=== PATIENT | male | born 1985 | race Caucasian/White ===

== ENCOUNTER → 2017-08-30 | Outpatient (CLI) | payer BC ==
[2017-08-30 11:53] LABS: Anisocytosis Slight; Basophils % (A) 0 %; Eosinophils # (A) 0.3 k/uL (0-0.7); Eosinophils % (A) 2 %; HCT 39.8 % (39.0-53.0); HGB 11.6 gm/dL (13.0-17.5); Hypochromasia Marked; Lymphocytes # (A) 1.5 k/uL (1.0-4.8); Lymphocytes % (A) 14 %; MCH 21.7 pg (25.0-35.0); MCHC 29.1 g/dL (31.0-37.0); MCV 74.5 fL (80.0-100.0); Mean Platelet Volume 6.3; Microcytosis Slight; Monocytes # (A) 0.6 k/uL (0-1.0); Monocytes % (A) 5 %; Neutrophils # (A) 8.2 k/uL (1.3-7.7); Neutrophils % (A) 77 %; Platelet Count 789 k/uL (150-450); RBC 5.33 m/uL (4.30-5.90); RDW 16.3 % (11.5-15.5); WBC 10.7 k/uL (3.8-10.6)
[2017-08-30 13:23] LABS: Partial Thromboplastin Time 21.9 sec (22.0-30.0)
== END | disposition home or self-care (01) ==
LOC: LABPAT 11:16
PROVIDERS: ATTEND Otolaryngology
DX: Z01.812 Encounter for preprocedural laboratory examination (principal); J35.01 Chronic tonsillitis
CPT/HCPCS: 36415; 85025; 85027; 85610; 85730

== ENCOUNTER 2017-09-07 09:29 | Day surgery (SDC) | payer BC ==
[2017-09-05 16:05] VITALS: BMI 33.2
--- NOTE | 2017-09-07 04:14 | HP ---
HISTORY AND PHYSICAL CHIEF COMPLAINT: Recurrent tonsillitis. HISTORY OF PRESENT ILLNESS: This patient is a 32-year-old male who was recently seen in my office with the complaint of having recurrent episodes of chronic tonsillitis which the patient states have been quite painful. He has been on numerous oral antibiotics with no improvement. At the time that he was seen in my office, clinical examination of the oropharynx revealed 3+ cryptic tonsils filled with white cheesy debris. It was recommended that the patient undergo a tonsillectomy under general anesthesia. PAST MEDICAL HISTORY: Past medical history reveals that the patient has no known allergies to medications. His only current medication is Concerta. Previous surgeries include oral surgery. REVIEW OF SYSTEMS: The review of systems is essentially unremarkable. PHYSICAL EXAMINATION: The patient is a pleasant 32-year-old male who is alert and cooperative. HEENT EXAMINATION: Patient is normocephalic. Tympanic membranes are normal. Middle ear spaces are free of any fluid or infection. Pupils are equal, round, and reactive to light and accommodation. Extraocular movements are within normal limits. Intranasal examination reveals severe septal deviation with compensatory hypertrophy of the inferior turbinates and a moderate amount of mucus on the mucous membranes and draining down the posterior pharynx. Examination of the oropharynx reveals 3+ tonsillar hypertrophy with very prominent tonsillar crypts filled with white cheesy debris. Palpation of the neck, cranial nerves 2 through 12 and the remainder of the head and neck exam is unremarkable. CHEST/CARDIOVASCULAR: Lung bravo are clear to percussion and auscultation. The patient is in regular sinus rhythm. S1, S2 are present without any murmurs, S3s or S4s. Peripheral pulses are bilaterally symmetrical and within normal limits. ABDOMEN: There is no evidence the masses, megaly or tenderness. The abdomen is soft. Skin is unremarkable. Musculoskeletal and neurological are within an within normal limits. RECTAL EXAMINATION: The rectal exam is deferred at this time because the patient has this done on a regular basis at his family physician's office. The remainder of physical exam is essentially unremarkable. IMPRESSION: Chronic tonsillitis. PLAN: The patient is scheduled to undergo a tonsillectomy under general anesthesia in the a.m. ATTENTION RNS IN THE PRE-SURGICAL AREA: The only medications that I have ordered for this patient to receive in the pre-surgical area are Ofirmev IV and also 2 million units of aqueous penicillin G IV, both to be given once an intravenous line has been established. If the pharmacy department sends any other pre-surgical prophylactic antibiotics to the pre-surgical area for this patient, they should be returned to the pharmacy department and make sure that the patient's account is credited appropriately. I have discussed the risks, benefits and alternative therapies for the above-mentioned procedure and for both sedation/analgesia as well as necessary blood product administration, if indicated, as they pertain to this patient. The patient has indicated his or her understanding and acceptance of the risks and procedures discussed. MMODL / IJN: [id number] /
[~2017-09-07 09:29] MED LIST: DEXAMETHASONE SOD PHOSPHATE 10 MG/ML 1 ML VIAL IV ONE; HYDROmorphone 0.5 MG/0.5 ML SYRINGE IVP PRN; LACTATED RINGERS 1,000 ML IV SCH; MORPHINE SULFATE 4 MG/ML SYRINGE IV PRN; NALOXONE 0.4 MG/ML 1 ML VIAL IV PRN; ONDANSETRON 4 MG/2 ML VIAL IVP ONE; Pre Op ABX Message 1 EACH MISC MISCELLANE ONE
[2017-09-07] MEDS ORDERED: SCOPOLAMINE 1.5MG/72HR PATCH TRANSDERM ONE (10:12)
[2017-09-07] MEDS ORDERED: ACETAMINOPHEN IV (For NPO) 1,000 MG in EMPTY BAG 1 BAG IVPB ONE (11:00)
[2017-09-07] MEDS ORDERED: PENICILLIN G POTASSIUM 2,000,000 UNIT in DEXTROSE 5% IN WATER 100 ML IVPB ONE ×2 (11:00)
[2017-09-07] MEDS ORDERED: SUCCINYLCHOLINE CHLORIDE 100 MG/5 ML SYR IV ONE (12:02)
[2017-09-07] MEDS ORDERED: PROPOFOL 10 MG/ML 20 ML VIAL IV ONE (12:02)
[2017-09-07] MEDS ORDERED: fentaNYL (PF) 50 MCG/ML 2 ML AMP ONE (12:02)
[2017-09-07] MEDS ORDERED: DEXAMETHASONE SOD PHOS (MDV) 100 MG/10 ML VIAL ONE (12:02)
[2017-09-07] MEDS ORDERED: MIDAZOLAM 2 MG/2 ML VIAL ONE (12:02)
[2017-09-07] MEDS ORDERED: LIDOCAINE 1% INJ 10MG/ML (20 ML MDV) ONE (12:02)
[2017-09-07] MEDS ORDERED: HYDROmorphone (PF) 1 MG/ML ONE (12:02)
[2017-09-07] MEDS ORDERED: BUPIVACAINE (PF) 0.5% 30 ML VIAL MISCELLANE ONE ×2 (12:26)
[2017-09-07] MEDS ORDERED: LACTATED RINGERS 1,000 ML IV SCH (12:30)
[2017-09-07] MEDS ORDERED: HYDROmorphone PCA 5 MG/25 ML SYRINGE IV PRN (12:30)
[2017-09-07] MEDS ORDERED: ONDANSETRON 4 MG/2 ML VIAL IVP PRN (12:30)
[2017-09-07 13:28] VITALS: TEMP 98.8
[2017-09-07] MEDS ORDERED: HYDROmorphone 2 MG/ML 1 ML SYRINGE IVP ONE (13:37)
[2017-09-07 14:45] VITALS: RESP 18
[2017-09-07 15:42] VITALS: BP 123/66; PULSE 74
--- NOTE | 2017-09-10 22:31 | OP ---
OPERATIVE REPORT DATE OF SURGERY: 09/07/2017 PREOPERATIVE DIAGNOSIS: Chronic tonsillitis. POSTOPERATIVE DIAGNOSIS: Chronic tonsillitis. ANESTHESIA: General. OPERATIVE PROCEDURE: Tonsillectomy. OPERATING SURGEON: Dr. Phillips. COMPLICATIONS: None. ESTIMATED BLOOD LOSS: Less than 50 mL. OPERATIVE PROCEDURE: The patient was placed on the Operating Table in the supine position, after uneventful induction and endotracheal intubation, satisfactory general anesthesia was obtained. Next, the #3 Mayelin-Gonsalo mouth gag was introduced into the oropharynx, expanded and suspended from a Gleason Stand. Following this, both peritonsillar areas were injected with the tonsillar forceps and pulled medially. The sickle knife was used to make an incision 4 mm lateral to the anterior pillar, beginning at the superior pole and working down to the inferior pole with a similar incision being carried out parallel to the posterior pillar. The angle scissors and the serrated Blade dissector were used to dissect the tonsil away from the tonsillar fossa. The tonsil itself was excised en toto using the tonsillar snare. Hemostasis was obtained using suction cautery. A sponge was placed in the empty tonsillar fossa. Attention was then directed to the left tonsil where the same procedure was carried out, with the left tonsil being grasped with the tonsillar forceps and pulled medially. The sickle knife was used to make an incision 4 mm lateral to the anterior pillar beginning at the superior pole and working down to the inferior pole with a similar incision being carried out parallel to the posterior pillar. Once again, the angle scissors and the serrated Blade dissector were used to dissect the tonsil away from the tonsillar fossa and the tonsil itself was excised en toto using the tonsillar snare. Hemostasis was obtained using suction cautery. A sponge was placed in the empty tonsillar fossa. The mouth gag was relaxed for a period of approximately seven minutes and upon re-expanding and removing all sponges, no evidence of any active bleeding was noted. At this point, the procedure was terminated. There were no intraoperative complications. The patient tolerated the procedure well and was returned to the Recovery Room in satisfactory condition. MMODL / IJN: [id number] /
== END 2017-09-07 15:50 | disposition home or self-care (01) ==
LOC: OR 09:29
PROVIDERS: ATTEND Otolaryngology
DX: J35.01 Chronic tonsillitis (principal); K21.9 Gastro-esophageal reflux disease without esophagitis; F90.9 Attention-deficit hyperactivity disorder, unspecified type; Z79.899 Other long term (current) drug therapy
CPT/HCPCS: 88304; 42826; J2250; J1170 ×3; J1100 ×2; J2405; J2001; J3010; J0131; J0330; J2704; J2540

== ENCOUNTER 2017-09-08 08:45 | Observation (INO) | payer BC ==
[2017-09-08 09:29] LABS: Anisocytosis Slight; Basophils % (A) 0 %; Eosinophils # (A) 0.1 k/uL (0-0.7); Eosinophils % (A) 1 %; HCT 36.2 % (39.0-53.0); HGB 10.9 gm/dL (13.0-17.5); Hypochromasia Marked; INR 1.1 (<1.2); Lymphocytes # (A) 1.8 k/uL (1.0-4.8); Lymphocytes % (A) 14 %; MCH 22.3 pg (25.0-35.0); MCV 74.3 fL (80.0-100.0); Mean Platelet Volume 6.4; Microcytosis Moderate; Monocytes # (A) 0.7 k/uL (0-1.0); Monocytes % (A) 6 %; Neutrophils # (A) 10.5 k/uL (1.3-7.7); Neutrophils % (A) 80 %; Platelet Count 731 k/uL (150-450); RBC 4.87 m/uL (4.30-5.90); RDW 16.5 % (11.5-15.5); WBC 13.2 k/uL (3.8-10.6)
[2017-09-08 09:32] LABS: Anion Gap 14 mmol/L; Blood Urea Nitrogen 19 mg/dL (9-20); Calcium 9.9 mg/dL (8.4-10.2); Carbon Dioxide 26 mmol/L (22-30); Chloride 99 mmol/L (98-107); Glucose 162 mg/dL (74-99); Potassium 5.2 mmol/L (3.5-5.1); Sodium 139 mmol/L (137-145)
[2017-09-08 09:46] LABS: Partial Thromboplastin Time 20.4 sec (22.0-30.0)
[2017-09-08] MEDS ORDERED: ONDANSETRON 4 MG/2 ML VIAL IVP STA (10:09)
[2017-09-08] MEDS ORDERED: MORPHINE SULFATE 5 MG/ML SYRINGE IVP STA (10:09)
--- NOTE | 2017-09-08 10:09 | ED ---
ENT HPI - General Chief complaint: ENT Stated complaint: bleeding from tonsil Sx Time Seen by Provider: 09/08/17 08:56 Source: patient, RN notes reviewed Mode of arrival: ambulatory Limitations: no limitations - History of Present Illness Initial comments: This is a 32-year-old male presents emergency Department chief complaint of postop, cage. Patient states he had tonsillectomy yesterday states that approximate one-hour prior arrival he started bleeding profusely. Patient states that is filled up several cups of blood. Patient states that he was drinking a protein smoothie this morning when it started. He did admit that when he got home from his surgery yesterday that he fell and hit his head. Patient did not lose consciousness he denies headache or dizziness. - Related Data Home Medications Medication Instructions Recorded Confirmed Methylphenidate HCl [Concerta] 36 mg PO DAILY 02/21/14 09/05/17 Mitchell Tracy 1 tab PO DAILY 09/05/17 Magnesium 200 mg PO DAILY 09/05/17 09/05/17 [place]-3 Fatty Acids/Fish Oil [Fish 1,000 mg PO DAILY 09/05/17 09/05/17 Oil 1,000 mg Softgel] Previous Rx's Medication Instructions Recorded Cephalexin [Keflex] 500 mg PO Q12HR #20 cap NS 09/07/17 HYDROcodone/APAP 7.5-325MG [[place] 1 tab PO Q4H PRN #25 tab NS 09/07/17 7.5-325] Allergies Allergy/AdvReac Type Severity Reaction Status Date / Time No Known Allergies Allergy Verified 09/08/17 08:54 Review of Systems ROS Statement: Those systems with pertinent positive or pertinent negative responses have been documented in the HPI. ROS Other: All systems not noted in ROS Statement are negative. Past Medical History Past Medical History: GERD/Reflux History of Any Multi-Drug Resistant Organisms: None Reported Past Surgical History: Orthopedic Surgery Additional Past Surgical History / Comment(s): hand, elbow, acl reconstruction knee, eye surg. Past Anesthesia/Blood Transfusion Reactions: No Reported Reaction Past Psychological History: No Psychological Hx Reported Smoking Status: Never smoker Past Alcohol Use History: Occasional Past Drug Use History: None Reported - Past Family History Mother Family Medical History: No Reported History General Exam Limitations: no limitations General appearance: alert, in no apparent distress Head exam: Present: atraumatic, normocephalic. Absent: normal inspection ( There is multiple superficial lacerations over the forehead ) Eye exam: Present: normal appearance, PERRL, EOMI. Absent: scleral icterus, conjunctival injection, periorbital swelling ENT exam: Present: mucous membranes moist, TM's normal bilaterally, normal external ear exam. Absent: normal exam, normal oropharynx (There is blood covering both tonsils and oral region difficult to identify active bleeding site. Patient is spitting up blood continuously in the room) Neck exam: Present: normal inspection, full ROM. Absent: tenderness, meningismus, lymphadenopathy Respiratory exam: Present: normal lung sounds bilaterally. Absent: respiratory distress, wheezes, rales, rhonchi, stridor Cardiovascular Exam: Present: regular rate, normal rhythm, normal heart sounds. Absent: systolic murmur, diastolic murmur, rubs, gallop, clicks Neurological exam: Present: alert, oriented X3, CN II-XII intact, reflexes normal. Absent: motor sensory deficit Skin exam: Present: warm, dry, intact, normal color. Absent: rash Course Vital Signs 09/08/17 09/08/17 08:53 09:10 Temperature 99.0 F Pulse Rate 118 H 69 Respiratory 20 16 Rate Blood Pressure 140/75 121/53 O2 Sat by Pulse 98 93 L Oximetry Medical Decision Making - Medical Decision Making 32-year-old male presented for tonsillectomy bleeding status post surgery. Dr. Jane did come and evaluate the patient will be taking the patient to the OR. - Lab Data Result diagrams: 09/08/17 09:07 09/08/17 09:07 Lab Results 09/08/17 09/08/17 09/08/17 Range/Units 09:07 09:07 09:07 WBC 13.2 H (3.8-10.6) k/uL RBC 4.87 (4.30-5.90) m/uL Hgb 10.9 L (13.0-17.5) gm/dL Hct 36.2 L (39.0-53.0) % MCV 74.3 L (80.0-100.0) fL MCH 22.3 L (25.0-35.0) pg MCHC 30.0 L (31.0-37.0) g/dL RDW 16.5 H (11.5-15.5) % Plt Count 731 H (150-450) k/uL Neutrophils % 80 % Lymphocytes % 14 % Monocytes % 6 % Eosinophils % 1 % Basophils % 0 % Neutrophils # 10.5 H (1.3-7.7) k/uL Lymphocytes # 1.8 (1.0-4.8) k/uL Monocytes # 0.7 (0-1.0) k/uL Eosinophils # 0.1 (0-0.7) k/uL Basophils # 0.0 (0-0.2) k/uL Hypochromasia Marked Anisocytosis Slight Microcytosis Moderate PT (9.0-12.0) sec INR (<1.2) APTT (22.0-30.0) sec Sodium 139 (137-145) mmol/L Potassium 5.2 H (3.5-5.1) mmol/L Chloride 99 (98-107) mmol/L Carbon Dioxide 26 (22-30) mmol/L Anion Gap 14 mmol/L BUN 19 (9-20) mg/dL Creatinine 1.11 (0.66-1.25) mg/dL Est GFR (MDRD) Af Amer >60 (>60 ml/min/1.73 sqM) Est GFR (MDRD) Non-Af >60 (>60 ml/min/1.73 sqM) Glucose 162 H (74-99) mg/dL Calcium 9.9 (8.4-10.2) mg/dL Blood Type O Positive Blood Type Recheck No Antibody Screen NEGATIVE Spec Expiration Date 09/11/2017 - 230609/08/17 Range/Units 09:07 WBC (3.8-10.6) k/uL RBC (4.30-5.90) m/uL Hgb (13.0-17.5) gm/dL Hct (39.0-53.0) % MCV (80.0-100.0) fL MCH (25.0-35.0) pg MCHC (31.0-37.0) g/dL RDW (11.5-15.5) % Plt Count (150-450) k/uL Neutrophils % % Lymphocytes % % Monocytes % % Eosinophils % % Basophils % % Neutrophils # (1.3-7.7) k/uL Lymphocytes # (1.0-4.8) k/uL Monocytes # (0-1.0) k/uL Eosinophils # (0-0.7) k/uL Basophils # (0-0.2) k/uL Hypochromasia Anisocytosis Microcytosis PT 11.0 (9.0-12.0) sec INR 1.1 (<1.2) APTT 20.4 L (22.0-30.0) sec Sodium (137-145) mmol/L Potassium (3.5-5.1) mmol/L Chloride (98-107) mmol/L Carbon Dioxide (22-30) mmol/L Anion Gap mmol/L BUN (9-20) mg/dL Creatinine (0.66-1.25) mg/dL Est GFR (MDRD) Af Amer (>60 ml/min/1.73 sqM) Est GFR (MDRD) Non-Af (>60 ml/min/1.73 sqM) Glucose (74-99) mg/dL Calcium (8.4-10.2) mg/dL Blood Type Blood Type Recheck Antibody Screen Spec Expiration Date Disposition Clinical Impression: Status post tonsillectomy, Haemorrhage, tonsil, postoperative Disposition: ADMITTED IP TO THIS HOSP Condition: Fair Referrals: Britney Mares DO [Primary Care Provider] - 1-2 days
[2017-09-08] MEDS ORDERED: OXYMETAZOLINE 0.05% NASL SPRAY 1 SPRAY BOTTLE NASAL STA (10:12)
[2017-09-08] MEDS ORDERED: BENZOCAINE SPRAY 1 CAN MUCOUS MEM STA (10:14)
[2017-09-08] MEDS ORDERED: METOCLOPRAMIDE 5 MG/ML 2 ML VIAL IVP STA (10:28)
[2017-09-08] MEDS ORDERED: IV FLUID CONTINUATION 1,000 ML IV ONE (10:55)
[2017-09-08] MEDS ORDERED: BUPIVACAINE (PF) 0.25% 30 ML VIAL SQ ONE ×2 (11:07→11:30)
[2017-09-08] MEDS ORDERED: LIDOCAINE 1%/EPI 1:200,000 MPF 10 ML VIAL SQ ONE ×2 (11:07→11:30)
[2017-09-08] MEDS ORDERED: MIDAZOLAM 2 MG/2 ML VIAL ONE (11:13)
[2017-09-08] MEDS ORDERED: FAMOTIDINE 20 MG/2 ML VIAL ONE (11:13)
[2017-09-08] MEDS ORDERED: LIDOCAINE 1% INJ 10MG/ML (20 ML MDV) ONE (11:13)
[2017-09-08] MEDS ORDERED: PROPOFOL 10 MG/ML 20 ML VIAL IV ONE (11:13)
[2017-09-08] MEDS ORDERED: SUCCINYLCHOLINE CHLORIDE 100 MG/5 ML SYR IV ONE (11:13)
[2017-09-08] MEDS ORDERED: fentaNYL (PF) 50 MCG/ML 2 ML AMP ONE (11:13)
[2017-09-08] MEDS ORDERED: ONDANSETRON 4 MG/2 ML VIAL ONE (11:13)
[2017-09-08] MEDS ORDERED: DEXAMETHASONE SOD PHOS (MDV) 100 MG/10 ML VIAL ONE (11:13)
[2017-09-08] MEDS ORDERED: DEXTROSE 5%-LACTATED RINGERS 1,000 ML IV SCH (12:15)
[2017-09-08] MEDS: HYDROmorphone 1 MG/ML 1 ML SYRINGE IVP ONE ×4 (12:30→12:50)
[2017-09-08] MEDS ORDERED: LACTATED RINGERS 1,000 ML IV ONE (13:05)
[2017-09-08 13:53] LABS: Anisocytosis Slight; HCT 29.6 % (39.0-53.0); Hypochromasia Marked; MCH 22.2 pg (25.0-35.0); MCHC 30.2 g/dL (31.0-37.0); MCV 73.6 fL (80.0-100.0); Mean Platelet Volume 7.5; Microcytosis Moderate; Platelet Count 561 k/uL (150-450); RBC 4.02 m/uL (4.30-5.90); RDW 17.7 % (11.5-15.5); WBC 23.7 k/uL (3.8-10.6)
[2017-09-08 13:59] LABS: HGB 8.9 gm/dL (13.0-17.5)
--- NOTE | 2017-09-08 14:07 | HP ---
HISTORY AND PHYSICAL CHIEF COMPLAINT: Postop tonsil bleed. HISTORY OF PRESENT ILLNESS: Tung Vicente is a 32-year-old white male who underwent a tonsillectomy by Dr. Giuseppe Phillips yesterday here at [facility]. The patient had surgery on Sunday, i.e., yesterday, went home and stayed by himself and called his mother where he had an acute bleed early this morning around 6 o'clock he had intermittent bleeding, by 9 o'clock he came to the emergency room with profuse bleeding. The patient denies eating any crunchy foods. Denies any heavy lifting or bending or any other activity that might have exacerbated this problem. He presented with profuse bleeding and comes with a large Phillips's cup full of blood. PAST MEDICAL HISTORY: Positive for ADD. SURGICAL HISTORY: Oral surgery and yesterday's tonsillectomy by Dr. Phillips. No other surgery history is noted. ALLERGIES: Negative. REVIEW OF SYSTEMS: CONSTITUTIONAL: Patient is fatigued and anxious. PULMONARY: Denies shortness of breath. GI: Denies any abdominal pain. MUSCULOSKELETAL: Patient works out and takes testosterone. ALLERGIES: Negative. NEUROLOGIC: Negative. PHYSICAL EXAMINATION: Vital signs are stable. Patient is afebrile. 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 Well nourished, well developed. No gross abnormalities. HEAD: Normocephalic. The face is symmetric. There is no abnormal movements. There are some abrasions to the forehead where he had a fall with some bandages covering the forehead. EARS: Postoperative tonsil hemorrhage, right side. PLAN OF TREATMENT: I am holding pressure with tonsil sponge and I have decided to take this patient to the operating room for better control of this patient's bleeding. All risks, benefits, alternative therapies, and complications were discussed with the patient. The patient agreed to this procedure and anesthesia has been notified. MMODL / IJN: [id number] /
[2017-09-08 14:26] VITALS: BMI 34.0
--- NOTE | 2017-09-08 14:37 | OP ---
OPERATIVE REPORT OPERATIVE NOTE DATE OF SERVICE: 09/08/2017. TYPE OF CASE: Urgent. SURGEON: Mckinley Pearson D.O. PREOPERATIVE DIAGNOSIS: Acute right-sided tonsillectomy hemorrhage. POSTOPERATIVE DIAGNOSIS: Acute right-sided tonsillectomy hemorrhage. OPERATIVE PROCEDURE: Surgical control of a right-sided postoperative tonsillectomy hemorrhage. OPERATIVE BLOOD LOSS: 10 mL. COMPLICATIONS: None. OPERATIVE INDICATIONS: This patient had profuse bleeding from the mouth and throat after tonsillectomy this morning. His surgery was done on Sunday and bleeding was noted this morning. We were unable to control the bleeding in the emergency room and we felt the patient needed to come to the operating room for control of postop tonsil hemorrhage. All risks, benefits, alternative therapies, and complications were discussed. Consent was obtained. All questions were answered. This patient had a tonsillectomy done by Dr. Giuseppe Phillips yesterday. OPERATIVE PROCEDURE: This patient was taken to the operating room, placed in the supine position. A general inhalation anesthetic was administered to the patient by mask and subsequently intubated with a cuffed endotracheal tube by the Department of Anesthesia with the functioning IV line in place. The patient was monitored throughout the entire case by the Department of Anesthesia. The patient had profuse bleeding noted on the right side. There was some bleeding noted on the left. With the use of Coblation cauterization and suture ties, the bleeding was controlled. FloSeal was placed into the tonsillar fossas for control of the patient's bleeding. Excellent control was obtained. The area was abraded with a tonsil sponge. We were unable to get the bleeding to start once again. The patient tolerated this well. We did suction a large amount of blood from the stomach and the patient tolerated this procedure well. Follow up will be with Dr. Phillips. The patient will be getting a hemoglobin. I anticipate he has some blood loss anemia. Hopefully he is above her hemoglobin of 7. If not we did talk to him previously and his mother about possible transfusion. We are awaiting the results of his H and H. DELGADO / JATIN: [id number] /
[2017-09-08] MEDS: oxyCODONE-APAP 5-325MG 1 EACH TAB PO PRN ×3 (15:43→23:26)
[2017-09-08] MEDS ORDERED: TEMAZEPAM 30 MG CAP PO PRN (17:04)
[2017-09-08] MEDS: DEXAMETHASONE SOD PHOSPHATE 4 MG/ML 1 ML VIAL IV SCH ×2 (17:42→23:26)
[2017-09-08] MEDS: ACETAMINOPHEN IV (For NPO) 1,000 MG in EMPTY BAG 1 BAG IVPB SCH ×2 (17:43→23:26)
[2017-09-08] MEDS ORDERED: methylPREDNISolone SOD SUCCI 125 MG/2 ML VIAL IV SCH (18:00)
[2017-09-09] MEDS: LACTATED RINGERS 1,000 ML IV SCH ×2 (01:15→08:32)
[2017-09-09] MEDS: oxyCODONE-APAP 5-325MG 1 EACH TAB PO PRN ×3 (05:22→13:55)
[2017-09-09] MEDS: DEXAMETHASONE SOD PHOSPHATE 4 MG/ML 1 ML VIAL IV SCH ×2 (05:24→11:22)
[2017-09-09] MEDS: ACETAMINOPHEN IV (For NPO) 1,000 MG in EMPTY BAG 1 BAG IVPB SCH ×2 (05:24→11:22)
[2017-09-09 07:00] VITALS: BP 133/81; PULSE 95; RESP 14; TEMP 98.5
[2017-09-09] MEDS ORDERED: METHYLPHENIDATE HCL 10 MG TAB PO SCH (13:00)
[2017-09-09 13:06] LABS: Anisocytosis Slight; Basophils % (A) 0 %; Eosinophils # (A) 0.1 k/uL (0-0.7); Eosinophils % (A) 1 %; HCT 31.6 % (39.0-53.0); Hypochromasia Marked; Lymphocytes # (A) 1.3 k/uL (1.0-4.8); Lymphocytes % (A) 9 %; MCH 21.6 pg (25.0-35.0); MCHC 28.4 g/dL (31.0-37.0); Mean Platelet Volume 6.2; Microcytosis Slight; Monocytes # (A) 0.5 k/uL (0-1.0); Monocytes % (A) 3 %; Neutrophils # (A) 12.1 k/uL (1.3-7.7); Neutrophils % (A) 86 %; Platelet Count 614 k/uL (150-450); RBC 4.16 m/uL (4.30-5.90); RDW 16.7 % (11.5-15.5); WBC 14.1 k/uL (3.8-10.6)
[2017-09-09 13:34] LABS: Anion Gap 12 mmol/L; Blood Urea Nitrogen 21 mg/dL (9-20); Calcium 10.1 mg/dL (8.4-10.2); Carbon Dioxide 29 mmol/L (22-30); Chloride 94 mmol/L (98-107); Glucose 191 mg/dL (74-99); Potassium 5.2 mmol/L (3.5-5.1); Sodium 135 mmol/L (137-145)
[2017-09-09] MEDS ORDERED: DEXAMETHASONE SOD PHOSPHATE 10 MG/ML 1 ML VIAL IV SCH (18:00)
--- NOTE | 2017-09-10 23:30 | DS ---
DISCHARGE SUMMARY DATE OF ADMISSION: 09/08/2017. DATE OF DISCHARGE: 09/09/2017. REASON FOR ADMISSION: Postoperative right-sided tonsillectomy bleeding 24 hours after surgery. OPERATIVE PROCEDURE: Control of right-sided post tonsillectomy bleeding by Dr. Mckinley Pearson. HISTORY OF PRESENT ILLNESS: This patient is a 32-year-old male who underwent an uneventful tonsillectomy on 09/07/2017. His estimated blood loss at that time was less than 50 mL. The patient was discharged that same day from the [facility] area with proper instructions and home going medications including antibiotics and pain medications, which included Pike 7.5/3.25 mg. He was given very detailed written postoperative instructions describing what to expect after surgery as well as the do's and don'tsduring his recovery. The patient apparently did well that evening after surgery, however, on the morning after his surgery, he developed some bleeding, which despite gargling with ice water, it became progressively worse and the patient presented to [facility] Emergency Room. He was evaluated by the emergency room physician and subsequently Dr. Mckinley Pearson who was called to see the patient. Dr. Pearson determined that the patient needed to be returned to surgery and in fact returned him to surgery to control a right sided post tonsillectomy bleed. The patient was subsequently admitted to the hospital. Dr. Pearson informed me of the patient's admission while I was visiting a hospital because I was unaware that he had been admitted. I subsequently saw the patient and had him transferred to my service and also advised the nursing staff to call Dr. Pearson and advised him that I had taken over care of the patient. At the time that I saw the patient, he was not having acute bleeding. There were some conflicting stories with regards to the patient's mental status. The nursing staff informed me that they had been told that the patient had attempted to commit suicide by striking himself in the forehead with a board with nails in it. In addition to this, he apparently had taken all of the Pike 7.5/3.5 tablets (30 tablets) all at once. However, reviewing the emergency room note, there was no mention of the suicide attempt and the patient was apparently quite lucid and able to recount history of his bleeding to the ER physician which is something which I would not expect if the patient had swallowed 30 Percocet tablets at 1 time. In addition to this , the wound on his forehead was consistent with the patient's story of having accidentally fallen at home and did not appear to be consistent with having been struck in the head with either wooden board or a wooden board with nails present in it. That is to say, I did not note any deep lacerations but simply several scrapes to the skin of the forehead. I confronted the patient with regards to how he got the wound and also I advised him of the nature of the information that had been circulated to me with regard to him attempting to commit suicide. The patient vehemently denied trying to commit suicide and stated that he simply fell at home and that the only deviance from the prescription directions with respect to the Pike 7.5, 3.25 was that he took 1 pill and when he did not receive any relief, he took a 2nd pill 3 hours later. The patient recounts that he did this twice and then he became somewhat nauseated and did not take any more pills. At this time, he is resting comfortably. He was admitted and placed on the appropriate intravenous medication as well as given pain medication and supplemental O2 with humidification. PAST MEDICAL HISTORY: Is well documented in the patient's recent history and physical dated 2017 and will not be repeated here. HOSPITAL COURSE: Once I had the patient transferred to my service, I requested nurse placed him on Ofirmev 1000 mg IV q.6, place him on a full liquid diet, and only allow him to have the Percocet tablets (which had been ordered by Dr. Mckinley Pearson), if absolutely necessary, and also advised him to strictly monitor this so that he does not receive this medication any sooner than the prescribed intervals. In addition, I increased his intravenous fluids to 125 mL/hour. I advised the patient that barring any complications that he would be discharged the following day, I also canceled a psychiatric consult and also a medical consult which had been placed for this patient because I felt after speaking with the patient and reviewing his lab work that they were not necessary. HOSPITAL COURSE: The patient's hospital course was uneventful. DISCHARGE STATUS: Patient is discharged at this time in satisfactory condition and is in no abnormal distress or abnormal pain. That is to say he is experiencing the usual amount of pain with respect to recent tonsillectomy patient. He states that he does not need any more of the narcotic pain medication because he has most of the pain medication left that was originally prescribed. I again emphasized to him the importance of only taking the pain tablets every 4 hours and not every 3 hours. Also emphasized to the patient that he should read the 1 page discharge instruction sheets, which I personally dictated and covers all of the information he needs with regard to diet, things to expect , and also things that he should not do such as exercise and also the diet is listed on the sheet. I Also advised him again that if any further bleeding starts again, he should gargle with ice water and spit after 5 minutes and if it does not stop, he should return to the emergency room. However, I also mentioned that he should not suck on popsicles, ice chips or ice use because this will cause him the swallow blood and will eventually make him throw up. The patient acknowledged that he understood the instructions. He stated that he had and a copy of the instructions at home. In addition, to the copy that he has at home I have made sure that the nurse printed out a 2nd copy of my personal instructions that I had dictated for this patient and gave them to the patient. DISCHARGE STATUS: He is discharged in satisfactory condition on the following medications and instructions: He is to resume the following post tonsillectomy instructions with 1 exception. I am going to place the patient on Motrin 800 mg p.o. t.i.d. p.r.n. for pain. I advised he may use his medications slowly or a be used to supplement his Pike 7.5/3.25 tablets should they wear off in 3 hours. I emphasized the importance that he can only take 3 of these Motrin 800 mg tablets per day at the most. In addition , we are going to place him on a Decadron Dosepak with appropriate instructions to be started on 09/10/2017. I personally phoned both of these prescriptions to [facility] on [address] in [place]. All of the patient's questions were answered and he stated that he understood all of the instructions. He has an appointment to be seen in my office on 09/13/2017 for his 1st postop followup visit. His has my office phone and has been advised to call if any problems or questions should arise. MMJEFFL / IJN: [id number] / MADELYN
== END 2017-09-09 14:55 | disposition home or self-care (01) ==
LOC: EC 08:45 → 3SUR 10:38
PROVIDERS: ADMIT Otolaryngology; ATTEND Otolaryngology
DX: J95.830 Postprocedural hemorrhage of a respiratory system organ or structure following a respiratory system procedure (principal); K21.9 Gastro-esophageal reflux disease without esophagitis; F90.9 Attention-deficit hyperactivity disorder, unspecified type; W19.XXXA Unspecified fall, initial encounter; Y92.009 Unspecified place in unspecified non-institutional (private) residence as the place of occurrence of the external cause; Y83.6 Removal of other organ (partial) (total) as the cause of abnormal reaction of the patient, or of later complication, without mention of misadventure at the time of the procedure; Z79.899 Other long term (current) drug therapy
CPT/HCPCS: 42962; 99285; 36415; 86900; 86901; 80048 ×2; 85025 ×2; 85027; 85610; 85730; 86850; G0378 ×2; C1762; J2250; J1100 ×3; J2405; J2001; J3010; J1170; J0131 ×2; J0330; J2704

== ENCOUNTER 2017-12-10 10:21 | Day surgery (SDC) | payer BC, OTHER ==
[2017-12-10 10:35] VITALS: RESP 16; TEMP 98.7
[2017-12-10] MEDS ORDERED: MIDAZOLAM 2 MG/2 ML VIAL IV PRN (10:44)
[2017-12-10] MEDS ORDERED: LIDOCAINE 1% 20 ML VIAL (10MG/ML) FOR IV START INTRADERMA PRN (10:44)
[2017-12-10] MEDS ORDERED: LACTATED RINGERS 1,000 ML IV SCH (10:44)
[2017-12-10] MEDS ORDERED: GLUCAGON 1 MG/ML VIAL ONE (11:18)
[2017-12-10] MEDS ORDERED: PROPOFOL 10 MG/ML 20 ML VIAL IV ONE (11:18)
[2017-12-10] MEDS ORDERED: LIDOCAINE 1% INJ 10MG/ML (20 ML MDV) ONE (11:18)
--- NOTE | 2017-12-10 11:22 | P.GSHP ---
History of Present Illness H&P Date: 12/10/17 Chief Complaint: GI bleed, anemia This is a 32-year-old male referred from Britney Mares. Patient has had issues with anemia and GI bleed. Patient presents today for EGD and colonoscopy. Past Medical History Past Medical History: Eye Disorder, GERD/Reflux, Pneumonia Additional Past Medical History / Comment(s): detached retina History of Any Multi-Drug Resistant Organisms: None Reported Past Surgical History: Appendectomy, Orthopedic Surgery, Tonsillectomy Additional Past Surgical History / Comment(s): right hand, right tricep tendon, back surgery, acl reconstruction Left knee x 3, ACL repair right knee x 1, eye surg., right bicep tendon Past Anesthesia/Blood Transfusion Reactions: No Reported Reaction Past Psychological History: ADD/ADHD Smoking Status: Former smoker Past Alcohol Use History: Occasional Past Drug Use History: None Reported - Past Family History Mother Family Medical History: No Reported History Additional Family Medical History / Comment(s): epilepsy Father Family Medical History: Myocardial Infarction ([place]) Medications and Allergies Home Medications Medication Instructions Recorded Confirmed Type Methylphenidate HCl [Concerta] 36 mg PO DAILY 02/21/14 12/10/17 History [place] 1 tab PO DAILY 09/05/17 12/10/17 History Magnesium 200 mg PO DAILY 09/05/17 12/10/17 History [place]-3 Fatty Acids/Fish Oil [Fish 1,000 mg PO DAILY 09/05/17 12/10/17 History Oil 1,000 mg Softgel] Pyridoxine [Vitamin B-6] 50 mg PO DAILY 09/08/17 12/10/17 History Zinc 50 mg PO DAILY 09/08/17 12/10/17 History HYDROcodone/APAP 7.5-325MG [[place] 1 tab PO Q4H PRN #20 tab NS 09/21/17 12/10/17 Rx 7.5-325] Cephalexin [Keflex] 500 mg PO Q12HR 12/10/17 12/10/17 History Allergies Allergy/AdvReac Type Severity Reaction Status Date / Time No Known Allergies Allergy Verified 12/10/17 10:28 Surgical - Exam Vital Signs Temp Pulse Resp BP Pulse Ox 98.7 F 92 16 129/68 97 12/10/17 10:34 12/10/17 10:34 12/10/17 10:34 12/10/17 10:34 12/10/17 10:34 - General well developed, no distress - Eyes PERRL - ENT normal pinna - Neck no masses - Respiratory normal expansion - Cardiovascular Rhythm: regular - Abdomen Abdomen: soft, non tender Assessment and Plan Assessment: GI bleed, anemia. We'll perform EGD and colonoscopy.
--- NOTE | 2017-12-10 11:54 | P.OP ---
Date of Procedure: 12/10/17 Preoperative Diagnosis: GI bleed Anemia Postoperative Diagnosis: Antral gastritis Sliding hiatal hernia Mild esophagitis Internal and external hemorrhoids Mild diverticulosis Procedure(s) Performed: EGD Colonoscopy Anesthesia: MAC Surgeon: Chris Hua Pathology: other (Antrum, esophagus) Condition: stable Disposition: PACU Description of Procedure: Patient's placed on the endoscopy table in the lateral position. He received IV sedation. The gastroscope placed oropharynx passed in the esophagus and into the stomach. Scope was then placed through the pylorus. The first and second portion of the duodenum appeared normal. The scope was then brought back the antrum this appeared mildly inflamed. A biopsies performed. The scope was then retroflexed and the remainder of the stomach appeared normal. The patient had a sliding hiatal hernia. The GE junction was at 38 7 is. The distal esophagus was minimal inflamed a biopsies performed. The proximal esophagus appeared normal. The scope was withdrawn from patient. Next digital rectal exam was performed which revealed no rebound is. The flexible colonoscope was then placed patient anus and passed throughout the entire colon. The ileocecal valve was visualized. The cecum, ascending and transverse colon appeared normal. In the descending and sigmoid was mild diverticular changes. Scope was then brought back the rectum and this appeared normal. Scope was withdrawn for patient.
[2017-12-10 12:08] VITALS: BP 110/57; PULSE 92
--- NOTE | 2017-12-17 09:05 | CDI ---
Date: 12/17/17 CDS/Manager Training Name: Megan Ram Phone: If any questions, call Cecilia Blankenship Calculus Professor at [phone] Patient Name: Tung Vicente Admit Date: 12/10/17 Discharge Date: 12/10/17 ATTENTION: The [employer] [facility] [employer] Coding Staff appreciate your assistance in clarifying documentation. Please respond to the clarification below the line at the bottom and electronically sign. The [employer] [employer] [facility] [employer] Coding staff will review the response and follow-up if needed. Please note: Queries are made part of the Legal Health Record. If you have any questions, please contact the Calculus Professor. Dear Dr. Hua. Please provide clarification if the GI bleed is related or caused by one of the findings on the EGD or colonoscopy. Please clarify if the GI Bleed is related to one of these diagnoses. Thank you for your kind consideration. Hemorrhoids, gastritis, esophagitis, diverticulosis can cause GI bleed. MTDD
== END 2017-12-10 12:36 | disposition home or self-care (01) ==
LOC: ORWHC2ENDO 10:21
PROVIDERS: ATTEND Surgery
DX: K57.90 Diverticulosis of intestine, part unspecified, without perforation or abscess without bleeding (principal); K44.9 Diaphragmatic hernia without obstruction or gangrene; K64.4 Residual hemorrhoidal skin tags; K64.8 Other hemorrhoids; K92.2 Gastrointestinal hemorrhage, unspecified; K21.0 Gastro-esophageal reflux disease with esophagitis; Z79.899 Other long term (current) drug therapy; F90.9 Attention-deficit hyperactivity disorder, unspecified type; Z79.2 Long term (current) use of antibiotics; Z87.891 Personal history of nicotine dependence
CPT/HCPCS: 88305; 45378; 43239; J1610; J2001; J2704

== ENCOUNTER → 2018-06-13 | Outpatient (CLI) | payer BC ==
--- NOTE | 2018-06-17 08:51 | CT ---
EXAMINATION TYPE: CT Enterography DATE OF EXAM: 06/13/2018 COMPARISON: None HISTORY: 33-year-old male abnormal Iron levels, iron deficiency anemia, unspecified TECHNIQUE: Contiguous axial scanning of the abdomen and pelvis performed without and with IV Contrast , patient injected with 100 mL of Isovue 370. Arterial and portal venous phase imaging was performed. Coronal/sagittal reconstructions performed. Negative oral contrast material was also administered pe r CT enterography protocol. CT DLP: 2398 mGycm Automated exposure control for dose reduction was used. FINDINGS: Heart normal size without pericardial effusion. Mild dependent atelectasis posterior lung bases. No pleural effusion. Liver enlarged measuring 25.9 cm craniocaudal. No focal liver lesion and no biliary ductal dilatation . Portal venous system appears patent. Incidentally, there is an accessory right hepatic artery from the SMA. Gallbladder, adrenal glands, kidneys, spleen, pancreas appear within normal limits. Some prominent, borderline-sized right lower quadrant mesenteric lymph nodes measure up to 7 mm and m ay be reactive/post inflammatory. Otherwise, no mesenteric or retroperitoneal lymphadenopathy. Prominent distention of multiple small bowel loops with the negative oral contrast agent. No abnormal ly thickened small bowel are mucosal hyperemia is identified. There is mottled material within the di stal ileum. The terminal ileum is collapsed but otherwise, visually normal. There is some linear hyperdense material adjacent to the cecum in the right lower quadrant that could reflect some surgical material related to prior appendectomy. Scattered mild overall stool burden. No pericolonic inflammatory change. Mildly tortuous sigmoid colo n. Bladder is urine distended. Central prostatic calcification. Prostate gland measures 4.1 cm wide. A c ouple prominent right external iliac chain lymph nodes measure up to 9 mm. No inguinal lymphadenopath y. No abnormal fluid collection the pelvis. Bones: The SI joints appear intact and normal. Mild facet arthropathy lower lumbar spine. Posterior i n interbody lumbar fusion from L2 through L4 levels. There is grade 1 retrolisthesis at L4-L5 and dis c osteophyte complex that L5-S1. IMPRESSION: 1. MOTTLED MATERIAL WITHIN THE DISTAL ILEUM COULD REPRESENT STASIS OR A FIBER FOOD BOLUS. CORRELATE W ITH PATIENT'S FOOD INTAKE PRIOR TO THE EXAM. 2. OTHERWISE, NO SPECIFIC BOWEL ABNORMALITY SEEN. 3. HEPATOMEGALY (25.9 CM). 4. A FEW BORDERLINE-SIZED RIGHT LOWER QUADRANT MESENTERIC LYMPH NODES MEASURE UP TO 7 MM AND A COUPLE BORDERLINE SIZED RIGHT EXTERNAL ILIAC CHAIN LYMPH NODES IN THE PELVIS MEASURE UP TO 9 MM. THESE ARE PROBABLY INCIDENTAL AND REACTIVE/POST INFLAMMATORY.
== END | disposition home or self-care (01) ==
LOC: RADCTMAIN 12:48
PROVIDERS: ATTEND Internal Medicine Hematology & Oncology
DX: R16.0 Hepatomegaly, not elsewhere classified (principal); R59.1 Generalized enlarged lymph nodes; D50.9 Iron deficiency anemia, unspecified
CPT/HCPCS: 74177; Q9967

== ENCOUNTER 2019-07-20 20:35 | Emergency (ER) | payer BC ==
[2019-07-20 20:41] VITALS: BP 130/84; PULSE 52; RESP 18; TEMP 97.7
--- NOTE | 2019-07-20 21:03 | ED ---
Upper Extremity HPI - General Chief Complaint: Extremity Injury, Upper Stated Complaint: Hand injury Time Seen by Provider: 07/20/19 20:44 Source: patient, RN notes reviewed, old records reviewed Mode of arrival: ambulatory Limitations: no limitations - History of Present Illness Initial Comments: Patient is a 34-year-old male presents today with right hand injury. Patient reports that he punched his fridge when he became angry. [place] is right-handed. Patient reports pain over the fourth and fifth digit. Patient reports had a previous injury to this hand and had pins and screws there before with a were removed. Patient states that he's had no recall for the orthopedic surgeon was at this time. Patient complains of some tingling in his fingers. - Related Data Home Medications Medication Instructions Recorded Confirmed Methylphenidate HCl [Concerta] 36 mg PO DAILY 02/21/14 12/10/17 [place] 1 tab PO DAILY 09/05/17 12/10/17 Magnesium 200 mg PO DAILY 09/05/17 12/10/17 [place]-3 Fatty Acids/Fish Oil [Fish 1,000 mg PO DAILY 09/05/17 12/10/17 Oil 1,000 mg Softgel] Pyridoxine [Vitamin B-6] 50 mg PO DAILY 09/08/17 12/10/17 Zinc 50 mg PO DAILY 09/08/17 12/10/17 Cephalexin [Keflex] 500 mg PO Q12HR 12/10/17 12/10/17 Previous Rx's Medication Instructions Recorded HYDROcodone/APAP 7.5-325MG [[place] 1 tab PO Q4H PRN #20 tab NS 09/21/17 7.5-325] Allergies Allergy/AdvReac Type Severity Reaction Status Date / Time No Known Allergies Allergy Verified 07/20/19 20:41 Review of Systems ROS Statement: Those systems with pertinent positive or pertinent negative responses have been documented in the HPI. ROS Other: All systems not noted in ROS Statement are negative. Past Medical History Past Medical History: Eye Disorder, GERD/Reflux, Pneumonia Additional Past Medical History / Comment(s): detached retina History of Any Multi-Drug Resistant Organisms: None Reported Past Surgical History: Appendectomy, Orthopedic Surgery, Tonsillectomy Additional Past Surgical History / Comment(s): right hand, right tricep tendon, back surgery, acl reconstruction Left knee x 3, ACL repair right knee x 1, eye surg., right bicep tendon Past Anesthesia/Blood Transfusion Reactions: No Reported Reaction Past Psychological History: ADD/ADHD Smoking Status: Former smoker Past Alcohol Use History: Occasional Past Drug Use History: None Reported - Past Family History Mother Family Medical History: No Reported History Additional Family Medical History / Comment(s): epilepsy Father Family Medical History: Myocardial Infarction ([place]) General Exam - General Exam Comments Initial Comments: Pleasant 34-year-old male. Alert and oriented 3. Limitations: no limitations General appearance: alert, in no apparent distress Head exam: Present: atraumatic, normocephalic, normal inspection Eye exam: Present: normal appearance, PERRL, EOMI. Absent: scleral icterus, conjunctival injection, periorbital swelling ENT exam: Present: normal exam, mucous membranes moist Neck exam: Present: normal inspection. Absent: tenderness, meningismus, lymphadenopathy Respiratory exam: Present: normal lung sounds bilaterally. Absent: respiratory distress, wheezes, rales, rhonchi, stridor Cardiovascular Exam: Present: regular rate, normal rhythm, normal heart sounds. Absent: systolic murmur, diastolic murmur, rubs, gallop, clicks GI/Abdominal exam: Present: soft, normal bowel sounds. Absent: distended, tenderness, guarding, rebound, rigid Extremities exam: Present: normal inspection, full ROM, normal capillary refill. Absent: tenderness, pedal edema, joint swelling, calf tenderness Right Elbow exam: Present: normal inspection, full ROM Forearm Wrist exam: Present: normal inspection, full ROM Hand Wrist exam: Present: normal inspection, full ROM, tenderness (over 4 and 5th digit and swelling ) Neuro motor exam: Present: wrist extension intact, thumb opposition intact, thumb IP flexion intact, thumb adduction intact, fingers 2-5 abduction intact Vascular: Present: normal capillary refill Back exam: Present: normal inspection Neurological exam: Present: alert, oriented X3, CN II-XII intact Psychiatric exam: Present: normal affect, normal mood Skin exam: Present: warm, dry, intact, normal color. Absent: rash Course Vital Signs 07/20/19 20:38 Temperature 97.7 F Pulse Rate 52 L Respiratory 18 Rate Blood Pressure 130/84 O2 Sat by Pulse 100 Oximetry Medical Decision Making - Medical Decision Making This patient's a 34-year-old male presents today with right hand pain. Patient punched a fridge when he was angry. Some tenderness and swelling over the fourth and fifth digit. Said previous fractures. This time x-ray shows no acute fracture. There is evidence of some spurring. Patient at this time Dominique ent was placed in a ulnar gutter splint, since her possible occult fracture pain and swelling. Discussed she can follow-up with orthopedic. All questions were answered return parameters were discussed. - Radiology Data Radiology results: report reviewed Minor spurring. No fracture seen. Disposition Clinical Impression: Hand contusion, Wrist sprain Disposition: HOME SELF-CARE Condition: Good Instructions (If sedation given, give patient instructions): Wrist Injury (ED) Additional Instructions: Remain in the splint. Follow-up with orthopedic if pain persists after 3-4 days. Please follow up with family doctor if symptoms have not improved over the next two days. Please return to the emergency room if your symptoms increase or worsen or for any other concerns. Is patient prescribed a controlled substance at d/c from ED?: No Referrals: Britney Mares DO [Primary Care Provider] - 1-2 days Eldon Pinedo MD [STAFF PHYSICIAN] - 1-2 days Time of Disposition: 21:57
--- NOTE | 2019-07-20 21:16 | XR ---
EXAMINATION TYPE: XR hand complete RT DATE OF EXAM: 07/20/2019 COMPARISON: NONE HISTORY: Pain TECHNIQUE: 3 views FINDINGS: There is some spurring at the fifth carpometacarpal joint. I see no definite fracture nor d islocation. There are no erosions. Carpal bones are intact. IMPRESSION: Minor spurring. No fracture seen.
--- NOTE | 2019-07-20 21:59 | ED ---
Disposition Clinical Impression: Hand contusion, Wrist sprain Disposition: HOME SELF-CARE Condition: Good Instructions (If sedation given, give patient instructions): Wrist Injury (ED) Additional Instructions: Remain in the splint. Follow-up with orthopedic if pain persists after 3-4 days. Please follow up with family doctor if symptoms have not improved over the next two days. Please return to the emergency room if your symptoms increase or worsen or for any other concerns. Is patient prescribed a controlled substance at d/c from ED?: No Referrals: Britney Mares DO [Primary Care Provider] - 1-2 days Eldon Pinedo MD [STAFF PHYSICIAN] - 1-2 days Time of Disposition: 21:59 Procedures - Orthopedic Splinting/Casting Injury #1 Side: right Upper Extremity Injury Location: wrist, hand Upper Extremity Immobilizer: ulnar gutter, Marcio wrap, synthetic pre-padded splint Additional Comments: is reevaluated neurovascularly intact.
== END 2019-07-20 22:18 | disposition home or self-care (01) ==
LOC: EC 20:35
DX: S63.501A Unspecified sprain of right wrist, initial encounter (principal); S60.221A Contusion of right hand, initial encounter; F90.9 Attention-deficit hyperactivity disorder, unspecified type; Z79.899 Other long term (current) drug therapy; Z98.890 Other specified postprocedural states; Z87.81 Personal history of (healed) traumatic fracture; Z87.891 Personal history of nicotine dependence; W22.8XXA Striking against or struck by other objects, initial encounter
CPT/HCPCS: 29125; 99284

== ENCOUNTER 2019-08-11 17:09 | Emergency (ER) | payer BC ==
[2019-08-11 17:16] VITALS: TEMP 98.2
[2019-08-11] MEDS ORDERED: SODIUM CHLORIDE 0.9% 1,000 ML IV STA (18:09)
[2019-08-11 18:42] LABS: Partial Thromboplastin Time 25.2 sec (22.0-30.0); Prothrombin Time 10.7 sec (9.0-12.0)
[2019-08-11 18:46] LABS: Basophils % (A) 1 %; Eosinophils # (A) 0.2 k/uL (0-0.7); Eosinophils % (A) 4 %; HCT 41.7 % (39.0-53.0); HGB 13.1 gm/dL (13.0-17.5); Hypochromasia Moderate; Lymphocytes # (A) 0.6 k/uL (1.0-4.8); Lymphocytes % (A) 13 %; MCHC 31.5 g/dL (31.0-37.0); MCV 76.2 fL (80.0-100.0); Mean Platelet Volume 7.3; Microcytosis Slight; Monocytes # (A) 0.4 k/uL (0-1.0); Monocytes % (A) 9 %; Neutrophils # (A) 3.3 k/uL (1.3-7.7); Neutrophils % (A) 70 %; Platelet Count 451 k/uL (150-450); RBC 5.47 m/uL (4.30-5.90); RDW 15.6 % (11.5-15.5); WBC 4.7 k/uL (3.8-10.6)
--- NOTE | 2019-08-11 18:51 | ED ---
General Adult HPI - General Chief complaint: Upper Respiratory Infection Stated complaint: coughing up blood Time Seen by Provider: 08/11/19 17:53 Source: patient, RN notes reviewed Mode of arrival: ambulatory Limitations: no limitations - History of Present Illness Initial comments: 34-year-old male with a past medical history of detached retina, GERD, pneumonia presents to the emergency department for a chief complaint of hemoptysis. Patient states that for the past 3 days he has had a cough. States that he saw his doctor today because he was having episodes of coughing up blood. states that the blood is a coin-sized amount when it occurs. Apparently patient had an outpatient chest x-ray that was abnormal so was sent to the emergency room for a CAT scan. Patient states that he is not necessarily short of breath but does get winded more easily. He denies chest pain. He denies fevers but admits to feeling hot and cold on and off. denies history of smoking.Patient has no other complaints at this time including shortness of breath, chest pain, abdominal pain, nausea or vomiting, headache, or visual changes. - Related Data Home Medications Medication Instructions Recorded Confirmed Methylphenidate HCl [Concerta] 36 mg PO DAILY 02/21/14 12/10/17 [place] 1 tab PO DAILY 09/05/17 12/10/17 Magnesium 200 mg PO DAILY 09/05/17 12/10/17 [place]-3 Fatty Acids/Fish Oil [Fish 1,000 mg PO DAILY 09/05/17 12/10/17 Oil 1,000 mg Softgel] Pyridoxine [Vitamin B-6] 50 mg PO DAILY 09/08/17 12/10/17 Zinc 50 mg PO DAILY 09/08/17 12/10/17 Cephalexin [Keflex] 500 mg PO Q12HR 12/10/17 12/10/17 Previous Rx's Medication Instructions Recorded HYDROcodone/APAP 7.5-325MG [[place] 1 tab PO Q4H PRN #20 tab NS 09/21/17 7.5-325] Allergies Allergy/AdvReac Type Severity Reaction Status Date / Time No Known Allergies Allergy Verified 08/11/19 17:16 Review of Systems ROS Statement: Those systems with pertinent positive or pertinent negative responses have been documented in the HPI. ROS Other: All systems not noted in ROS Statement are negative. Past Medical History Past Medical History: Eye Disorder, GERD/Reflux, Pneumonia Additional Past Medical History / Comment(s): detached retina History of Any Multi-Drug Resistant Organisms: None Reported Past Surgical History: Appendectomy, Orthopedic Surgery, Tonsillectomy Additional Past Surgical History / Comment(s): right hand, right tricep tendon, back surgery, acl reconstruction Left knee x 3, ACL repair right knee x 1, eye surg., right bicep tendon Past Anesthesia/Blood Transfusion Reactions: No Reported Reaction Past Psychological History: ADD/ADHD Smoking Status: Former smoker Past Alcohol Use History: None Reported Past Drug Use History: None Reported - Past Family History Mother Family Medical History: No Reported History Additional Family Medical History / Comment(s): epilepsy Father Family Medical History: Myocardial Infarction ([place]) General Exam Limitations: no limitations General appearance: alert, in no apparent distress Head exam: Present: atraumatic, normocephalic, normal inspection Eye exam: Present: normal appearance, PERRL, EOMI. Absent: scleral icterus, conjunctival injection, periorbital swelling ENT exam: Present: normal exam, normal oropharynx, mucous membranes moist, TM's normal bilaterally, normal external ear exam Neck exam: Present: normal inspection, full ROM. Absent: tenderness, meningismus, lymphadenopathy Respiratory exam: Present: normal lung sounds bilaterally. Absent: respiratory distress, wheezes, rales, rhonchi, stridor Cardiovascular Exam: Present: regular rate, normal rhythm, normal heart sounds. Absent: systolic murmur, diastolic murmur, rubs, gallop, clicks Course Vital Signs 08/11/19 17:14 Temperature 98.2 F Pulse Rate 100 Respiratory 18 Rate Blood Pressure 135/84 O2 Sat by Pulse 97 Oximetry EKG Findings - EKG Comments: EKG Findings:: normal sinus rhythm, ventricular rate 80, WA interval 152, QTC 408 Medical Decision Making - Medical Decision Making CBC CMP unremarkable. Patient has a history of transaminitis. She was sent in for a CAT scan by primary care for hemoptysis. CTA shows no evidence of pulmonary embolism. No acute lung disease. No cause for hemoptysis seen. Patient is coughing and congestion he likely has hemoptysis secondary to br onchitis. He has already been prescribed a steroid and antibiotic that he has not yet started. He will follow up with primary care in 1-2 days. He will return here if he has any worsening symptoms. - Lab Data Result diagrams: 08/11/19 18:16 08/11/19 18:16 Lab Results 08/11/19 08/11/19 08/11/19 Range/Units 18:16 18:16 18:16 WBC 4.7 (3.8-10.6) k/uL RBC 5.47 (4.30-5.90) m/uL Hgb 13.1 (13.0-17.5) gm/dL Hct 41.7 (39.0-53.0) % MCV 76.2 L (80.0-100.0) fL MCH 24.0 L (25.0-35.0) pg MCHC 31.5 (31.0-37.0) g/dL RDW 15.6 H (11.5-15.5) % Plt Count 451 H (150-450) k/uL Neutrophils % 70 % Lymphocytes % 13 % Monocytes % 9 % Eosinophils % 4 % Basophils % 1 % Neutrophils # 3.3 (1.3-7.7) k/uL Lymphocytes # 0.6 L (1.0-4.8) k/uL Monocytes # 0.4 (0-1.0) k/uL Eosinophils # 0.2 (0-0.7) k/uL Basophils # 0.0 (0-0.2) k/uL Hypochromasia Moderate Microcytosis Slight PT 10.7 (9.0-12.0) sec INR 1.0 (<1.2) APTT 25.2 (22.0-30.0) sec Sodium 141 (137-145) mmol/L Potassium 4.3 (3.5-5.1) mmol/L Chloride 104 (98-107) mmol/L Carbon Dioxide 25 (22-30) mmol/L Anion Gap 12 mmol/L BUN 11 (9-20) mg/dL Creatinine 0.93 (0.66-1.25) mg/dL Est GFR (CKD-EPI)AfAm >90 (>60 ml/min/1.73 sqM) Est GFR (CKD-EPI)NonAf >90 (>60 ml/min/1.73 sqM) Glucose 139 H (74-99) mg/dL Calcium 9.5 (8.4-10.2) mg/dL Magnesium 1.7 (1.6-2.3) mg/dL Total Bilirubin 0.6 (0.2-1.3) mg/dL AST 88 H (17-59) U/L ALT 79 H (4-49) U/L Alkaline Phosphatase 136 H (38-126) U/L Troponin I (0.000-0.034) ng/mL Total Protein 7.1 (6.3-8.2) g/dL Albumin 4.1 (3.5-5.0) g/dL 08/11/19 Range/Units 18:16 WBC (3.8-10.6) k/uL RBC (4.30-5.90) m/uL Hgb (13.0-17.5) gm/dL Hct (39.0-53.0) % MCV (80.0-100.0) fL MCH (25.0-35.0) pg MCHC (31.0-37.0) g/dL RDW (11.5-15.5) % Plt Count (150-450) k/uL Neutrophils % % Lymphocytes % % Monocytes % % Eosinophils % % Basophils % % Neutrophils # (1.3-7.7) k/uL Lymphocytes # (1.0-4.8) k/uL Monocytes # (0-1.0) k/uL Eosinophils # (0-0.7) k/uL Basophils # (0-0.2) k/uL Hypochromasia Microcytosis PT (9.0-12.0) sec INR (<1.2) APTT (22.0-30.0) sec Sodium (137-145) mmol/L Potassium (3.5-5.1) mmol/L Chloride (98-107) mmol/L Carbon Dioxide (22-30) mmol/L Anion Gap mmol/L BUN (9-20) mg/dL Creatinine (0.66-1.25) mg/dL Est GFR (CKD-EPI)AfAm (>60 ml/min/1.73 sqM) Est GFR (CKD-EPI)NonAf (>60 ml/min/1.73 sqM) Glucose (74-99) mg/dL Calcium (8.4-10.2) mg/dL Magnesium (1.6-2.3) mg/dL Total Bilirubin (0.2-1.3) mg/dL AST (17-59) U/L ALT (4-49) U/L Alkaline Phosphatase (38-126) U/L Troponin I <0.012 (0.000-0.034) ng/mL Total Protein (6.3-8.2) g/dL Albumin (3.5-5.0) g/dL Disposition Clinical Impression: Hemoptysis Disposition: HOME SELF-CARE Condition: Good Instructions (If sedation given, give patient instructions): Upper Respiratory Infection (ED), Hemoptysis (ED) Additional Instructions: please take steroid and antibiotic as directed by your primary care provider. If you have any worsening symptoms return to the emergency department for further evaluation. Is patient prescribed a controlled substance at d/c from ED?: No Referrals: Britney Mares DO [Primary Care Provider] - 1-2 days Time of Disposition: 19:50
[2019-08-11 18:52] LABS: ALT 79 U/L (4-49); AST 88 U/L (17-59); African American GFR (CKD) >90 (>60 ml/min/1.73 sqM); Albumin 4.1 g/dL (3.5-5.0); Alkaline Phosphatase 136 U/L (38-126); Anion Gap 12 mmol/L; Blood Urea Nitrogen 11 mg/dL (9-20); Calcium 9.5 mg/dL (8.4-10.2); Carbon Dioxide 25 mmol/L (22-30); Chloride 104 mmol/L (98-107); Glucose 139 mg/dL (74-99); Magnesium 1.7 mg/dL (1.6-2.3); Non-African American GFR(CKD) >90 (>60 ml/min/1.73 sqM); Potassium 4.3 mmol/L (3.5-5.1); Sodium 141 mmol/L (137-145); Total Bilirubin 0.6 mg/dL (0.2-1.3); Total Protein 7.1 g/dL (6.3-8.2)
--- NOTE | 2019-08-11 19:31 | CT ---
EXAMINATION TYPE: CT chest angio for PE DATE OF EXAM: 08/11/2019 COMPARISON: None HISTORY: Hemoptysis CT DLP: 710.3 mGycm Automated exposure control for dose reduction was used. CONTRAST: Performed with IV Contrast, patient injected with 100 mL of Isovue 370. There are 3-D post processed images. The lungs are clear of infiltrate. There is no pleural effusion. There is no pericardial effusion. Th ere is no mediastinal adenopathy. There are no hilar masses. There is normal contrast opacification of the pulmonary arteries. I see no filling defects. Thoracic aorta shows no evidence of aneurysm or dissection. Heart size is normal. Upper abdominal soft tissues are intact. Bony thorax is intact. There is no thoracic compression fracture. IMPRESSION: No evidence of pulmonary embolism. No evidence of acute lung disease. I do not see a cause for hemopt ysis.
[2019-08-11 19:57] VITALS: BP 137/88; PULSE 97; RESP 20
== END 2019-08-11 19:56 | disposition home or self-care (01) ==
LOC: EC 17:09
DX: R04.2 Hemoptysis (principal); K21.9 Gastro-esophageal reflux disease without esophagitis; R09.81 Nasal congestion; R74.0 Nonspecific elevation of levels of transaminase and lactic acid dehydrogenase [LDH]; F90.9 Attention-deficit hyperactivity disorder, unspecified type; Z79.899 Other long term (current) drug therapy; Z87.19 Personal history of other diseases of the digestive system; Z87.891 Personal history of nicotine dependence
CPT/HCPCS: 36415; 93005; 80053; 83735; 84484; 85025; 85610; 85730; 71275; 96360; 96361; 99284; Q9967

== ENCOUNTER 2019-11-02 | Emergency (ER) | payer BC | END 2019-11-02 21:19 | disposition home or self-care (01) | CPT/HCPCS: 10120; 99283 ==

== ENCOUNTER → 2022-08-25 | Outpatient (CLI) | payer BC ==
--- NOTE | 2022-08-26 04:53 | MR ---
EXAMINATION TYPE: MR elbow RT wo con DATE OF EXAM: 08/25/2022 COMPARISON: None HISTORY: Rt elbow pain, lifting injury, past hx of surgery Multiplanar multi echo imaging of the right elbow performed without contrast. Radial head is intact. Distal humerus and proximal ulna appear intact. There is some increased fluid signal around the triceps tendon near the attachment on the olecranon process. The brachialis tendon is intact. The biceps tendon is intact. No evidence of any significant elbow aundrea int effusion. No evidence of a fracture. No focal bone destruction. The collateral ligaments appear i ntact. IMPRESSION: Increased fluid signal around the triceps tendon which has wavy appearance and consistent with partia l tear and tendinitis. No fracture seen. Subcutaneous edema over the olecranon process of the ulna.
== END | disposition home or self-care (01) ==
LOC: RADMRIMAIN 14:32
PROVIDERS: ATTEND Family Medicine
DX: M25.521 Pain in right elbow (principal); R60.0 Localized edema; T14.90XA Injury, unspecified, initial encounter